=== PATIENT | male | born 2000 | race Caucasian/White ===

== ENCOUNTER 2022-12-08 23:10 | Emergency (ER) | payer OTHER ==
[~2022-12-08] VITALS: Ht 185.4 cm; Wt 77.1 kg
[~2022-12-08 23:10] MED LIST: PERM5TC TOP; SULTRIEL PO
[2022-12-09 00:03] VITALS: BP 141/83
[2022-12-09] MEDS ORDERED: AMOCLA875 PO (01:54)
== END 2022-12-09 02:03 | disposition home or self-care (01) ==
LOC: ER 23:10
DX: S62.635B Displaced fracture of distal phalanx of left ring finger, initial encounter for open fracture (principal); W23.0XXA Caught, crushed, jammed, or pinched between moving objects, initial encounter; Z23 Encounter for immunization
CPT/HCPCS: 12001; 73130; 90471; 90715; 99283-25; A9270

== ENCOUNTER 2024-06-15 08:43 | Emergency (ER) | payer OTHER ==
[~2024-06-15] VITALS: Ht 185.4 cm; Wt 74.4 kg
[~2024-06-15 08:43] MED LIST changes: +AMOCLA875 PO
[2024-06-15 09:14] VITALS: BP 126/79
[2024-06-15] MEDS ORDERED: MECL25 PO (09:20)
== END 2024-06-15 09:18 | disposition other institution (70) ==
LOC: ER 08:43
DX: H92.01 Otalgia, right ear (principal); Z59.89 Other problems related to housing and economic circumstances
CPT/HCPCS: 99282

== ENCOUNTER 2024-06-15 21:24 | Emergency (ER) | payer OTHER ==
[~2024-06-15] VITALS: Ht 185.4 cm; Wt 74.4 kg
[~2024-06-15 21:24] MED LIST changes: +MECL25 PO
[2024-06-15 21:30] VITALS: BP 127/84
== END 2024-06-15 21:37 | disposition home or self-care (01) ==
LOC: ER 21:24
DX: R29.0 Tetany (principal); F41.9 Anxiety disorder, unspecified; Z79.899 Other long term (current) drug therapy; Z79.2 Long term (current) use of antibiotics
CPT/HCPCS: 99283